=== PATIENT | female | born 1985 | race Two or more races ===

== ENCOUNTER → 2017-02-24 | Outpatient (CLI) | payer BC ==
--- NOTE | 2017-02-24 16:08 | REP ---
Obstetric sonography: History: Supervision of for anatomy at 20 weeks. Findings: Scanning through the gravid uterus demonstrates a viable single intrauterine gestation in a variable lie. motion is observed and heart rate is recorded at 150 beats per minute. A posterior placenta is seen grade zero without evidence of previa or abruption. Amniotic fluid is subjectively normal. Closed cervical length measured 4.5 cm viewed transabdominally. No extrauterine abnormality is observed. No anomaly is seen. Face and profile, four-chamber heart and outflow tract views are less than optimally seen due to position. The following additional anatomic structures are identified and felt to be sonographically unremarkable: cranium, choroid plexus, cavum, cerebellum posterior fossa, lungs, diaphragm, left-sided stomach, abdominal wall cord insertion, three-vessel umbilical cord, kidneys and bladder, spine, upper and lower extremities. Biometry chart: BPD 4.6 cm 19 weeks 6 days Head circumference 17.4 cm 19-week 6 days Abdominal circumference 15.1 cm 20 weeks 2 days Femur length 3.5 cm 21 weeks 1 day Humeral length 3.4 cm 21 weeks 3 days Cerebellar diameter 2.1 cm 20 weeks 0 days HC/AC ratio normal 1.15 cephalic index normal 0.73 estimated weight 365 grams 0 pounds 12 ounces 53rd percentile for 20 weeks 3 days. Impression: Viable single intrauterine gestation at 20 weeks 1 day by today's composite criteria. ROSALINDA by today's sonography 07/13/2017. face and profile and heart structures less than optimally seen today due to position. Signed by Smith Banks MD 02/24/2017 08:23 P
== END ==
LOC: M SMT 14:04
PROVIDERS: ATTEND Obstetrics & Gynecology
DX: Z34.81 Encounter for supervision of other normal pregnancy, first trimester (principal); R30.0 Dysuria; Z36 Encounter for antenatal screening of mother; Z3A.20 20 weeks gestation of pregnancy

== ENCOUNTER → 2017-03-29 | Outpatient (CLI) | payer BC ==
--- NOTE | 2017-03-30 04:09 | REP ---
Clinical: Anatomical re-evaluation. Comparison: 02/24/2017 . Findings: Examination demonstrates a single live intrauterine in cephalic presentation. motion is identified by technologist. Placenta is noted posteriorly and grade one without evidence for placenta previa or abruption. Amniotic fluid volume is normal. Cervix measures 5.9 cm in length and appears closed. No evidence for nuchal cord. Gestational age by LMP 25 weeks 1 day with ROSALINDA 07/11/2017 . Gestational age by current measurements 24 weeks 4 days with ROSALINDA 07/15/2017 . FHR equals 147 beats per minute. Estimated weight 746 grams ( 38th percentile). Anatomical assessment demonstrates normal structures including cranium, choroid plexus, cavum, cerebellum/posterior fossa, facial features, lungs, four-chamber heart/ventricular outflow tracts, diaphragm, stomach, cord insertion, kidneys/bladder, spine, and extremities. Impression: Single live intrauterine in cephalic presentation demonstrating appropriate interval growth. In conjunction with prior examination anatomical assessment is complete and normal. No gross abnormalities are identified. Signed by Yemi Esquivel MD 03/30/2017 04:00 A
== END ==
LOC: M SMT 14:57
PROVIDERS: ATTEND Obstetrics & Gynecology
DX: Z34.82 Encounter for supervision of other normal pregnancy, second trimester (principal); Z36 Encounter for antenatal screening of mother; Z3A.25 25 weeks gestation of pregnancy